=== PATIENT | female | born 1990 | race Caucasian/White ===

== ENCOUNTER 2019-04-18 09:50 | Outpatient (CLI) | payer BC ==
[2019-04-18 10:16] VITALS: BP 124/81; PULSE 118; RESP 18; TEMP 97.4
[2019-04-18 10:44] LABS: Basophils % (A) 0 %; Eosinophils # (A) 0.1 k/uL (0-0.7); Eosinophils % (A) 1 %; HGB 13.5 gm/dL (11.4-16.0); Lymphocytes # (A) 1.3 k/uL (1.0-4.8); Lymphocytes % (A) 12 %; MCH 30.9 pg (25.0-35.0); MCHC 34.5 g/dL (31.0-37.0); MCV 89.5 fL (80.0-100.0); Mean Platelet Volume 7.3; Monocytes # (A) 0.5 k/uL (0-1.0); Monocytes % (A) 5 %; Neutrophils # (A) 8.2 k/uL (1.3-7.7); Neutrophils % (A) 80 %; Platelet Count 203 k/uL (150-450); RBC 4.36 m/uL (3.80-5.40); RDW 13.4 % (11.5-15.5); WBC 10.2 k/uL (3.8-10.6)
[2019-04-18 10:55] LABS: ALT 30 U/L (9-52); AST 29 U/L (14-36); African American GFR (CKD) >90 (>60 ml/min/1.73 sqM); Blood Urea Nitrogen 7 mg/dL (7-17); LDH 373 U/L (313-618); Uric Acid 3.7 mg/dL (3.7-7.4)
== END 2019-04-18 12:25 | disposition home or self-care (01) ==
LOC: FBPOP 09:50
PROVIDERS: ATTEND Obstetrics & Gynecology
DX: O13.3 Gestational [pregnancy-induced] hypertension without significant proteinuria, third trimester (principal); Z3A.37 37 weeks gestation of pregnancy
CPT/HCPCS: 59025; 82565; 82570; 83615; 84156; 84450; 84460; 84520; 84550; 85025

== ENCOUNTER 2019-04-26 05:40 | Inpatient (IN) | payer BC ==
[2019-04-26] MEDS ORDERED: TERBUTALINE 1 MG/ML VIAL SQ PRN (05:59)
[2019-04-26] MEDS ORDERED: LIDOCAINE 0.5% (PF) 5 MG/ML (50 ML SDV) SQ PRN (05:59)
[2019-04-26] MEDS ORDERED: CARBOPROST TROMETHAMINE 250 MCG/ML 1 ML AMP IM PRN (05:59)
[2019-04-26] MEDS ORDERED: OXYTOCIN 30 UNITS/500 ML NS 30 UNIT in SALINE 1 500ML.BAG IV SCH (05:59)
[2019-04-26] MEDS ORDERED: OXYTOCIN 10 UNIT/ML 1 ML VIAL IM PRN (05:59)
[2019-04-26] MEDS ORDERED: METHYLERGONOVINE 0.2 MG/ML 1 ML AMP IM PRN (05:59)
--- NOTE | 2019-04-26 06:06 | P.HPOB ---
History of Present Illness H&P Date: 04/26/19 Chief Complaint: Gestational hypertension. This patient is a pleasant 28-year-old 1 para 0 female estimated date of confinement 05/07/2019 estimated gestational age 38-3/7 weeks who presents to labor and delivery for induction of labor secondary to gestational hypertension. Patient's history is such that her second visit she had elevated blood pressures 138/98. Patient was watched closely at home and also with nonstress testing and growth ultrasounds. She did have preeclampsia labs approximately a week and a half ago which were normal however began developing blood pressures 130/90. This time I recommended per current recommendations to proceed with delivery with a favorable cervix at term. care has otherwise been uncomplicated. Review of Systems Genitourinary: Reports Menstruation: Reports amenorrhea Past Medical History Past Medical History: No Reported History History of Any Multi-Drug Resistant Organisms: None Reported Past Surgical History: No Surgical Hx Reported Past Anesthesia/Blood Transfusion Reactions: No Reported Reaction Past Psychological History: No Psychological Hx Reported Smoking Status: Never smoker Past Alcohol Use History: None Reported Past Drug Use History: None Reported Medications and Allergies Home Medications Medication Instructions Recorded Confirmed Type Pnv 11/Iron Fum/Folic Acid/Om3 1 each PO DAILY 04/18/19 04/26/19 History [Virt-Freeman Dha Softgel] Allergies Allergy/AdvReac Type Severity Reaction Status Date / Time loratadine [From Claritin] AdvReac Rash/Hives Verified 04/18/19 10:07 Exam Intake and Output 04/25/19 04/25/19 04/26/19 14:59 22:59 06:59 Other: Weight 90.265 kg - OBG Physical Exam Abdomen: bowel sounds normal, no diffuse tenderness, no bruit present, no guarding noted, no hepatomegaly, no splenomegaly, no mass Vulva: both: normal Vagina: normal moisture, no discharge Cervix: no lesion (Cervix in the office was 1-2 cm dilated and soft.), no discharge Uterus: enlarged (Fundal height was 39 cm) Results blood work shows she is O positive, rubella immune, RPR nonreactive, hepatitis B negative, Glucola was normal, group B strep was negative, most recent growth ultrasound showed normal size. Assessment and Plan Assessment: This patient is a pleasant 28-year-old 1 para 0 female 38-3/7 weeks gestation who is admitted to labor and delivery for induction of labor secondary to gestational hypertension. Plan is induction of labor and anticipate vaginal delivery. I am going to repeat her preeclampsia blood work at this time. (1) 38 weeks gestation of Current Visit: Yes Status: Acute Code(s): Z3A.38 - 38 WEEKS GESTATION OF SNOMED Code(s): 78570977 (2) Gestational hypertension Current Visit: Yes Status: Acute Code(s): O13.9 - GESTATIONAL HTN W/O SIGNIFICANT PROTEINURIA, UNSP TRIMESTER SNOMED Code(s): 215020582
[2019-04-26 06:35] LABS: Basophils # (A) 0.1 k/uL (0-0.2); Basophils % (A) 1 %; Eosinophils # (A) 0.1 k/uL (0-0.7); Eosinophils % (A) 1 %; HCT 40.7 % (34.0-46.0); HGB 14.1 gm/dL (11.4-16.0); Lymphocytes % (A) 19 %; MCH 30.9 pg (25.0-35.0); MCHC 34.6 g/dL (31.0-37.0); MCV 89.4 fL (80.0-100.0); Mean Platelet Volume 7.4; Monocytes # (A) 0.5 k/uL (0-1.0); Monocytes % (A) 5 %; Neutrophils # (A) 7.2 k/uL (1.3-7.7); Neutrophils % (A) 71 %; Platelet Count 196 k/uL (150-450); RBC 4.56 m/uL (3.80-5.40); RDW 13.6 % (11.5-15.5); WBC 10.1 k/uL (3.8-10.6)
[2019-04-26] MEDS: LACTATED RINGERS 1,000 ML IV SCH ×4 (06:41→17:53)
[2019-04-26 06:44] LABS: INR 0.8 (<1.2); Partial Thromboplastin Time 24.3 sec (22.0-30.0); Prothrombin Time 9.4 sec (9.0-12.0)
[2019-04-26 06:46] VITALS: BMI 34.1
[2019-04-26 06:47] LABS: Albumin 3.7 g/dL (3.5-5.0); Bilirubin, Delta 0.2 mg/dL (0.0-0.2); Bilirubin,Unconjugated 0.7 mg/dL (0.0-1.1); Total Bilirubin 0.9 mg/dL (0.2-1.3); Total Protein 6.8 g/dL (6.3-8.2); Uric Acid 3.3 mg/dL (3.7-7.4)
[2019-04-26] MEDS ORDERED: SODIUM CHLORIDE 0.9% 100 ML BAG ONE (12:19)
[2019-04-26] MEDS ORDERED: fentaNYL (PF) 50 MCG/ML 5 ML AMP ONE (12:19)
[2019-04-26] MEDS ORDERED: ROPIVACAINE 5MG/ML 20ML VIAL ONE (12:19)
[2019-04-26] MEDS ORDERED: AMPICILLIN 2,000 MG in SODIUM CHLORIDE 0.9% 100 ML IVPB STA (17:57)
[2019-04-26] MEDS ORDERED: diphenhydrAMINE 25 MG CAP PO PRN (19:44)
[2019-04-26] MEDS ORDERED: WITCH HAZEL 1 EACH MED..PAD TOPICAL PRN (19:44)
[2019-04-26] MEDS ORDERED: diphenhydrAMINE 50 MG/ML 1 ML VIAL IVP PRN (19:44)
[2019-04-26] MEDS ORDERED: LANOLIN CREAM 5 GM TUBE TOPICAL PRN (19:44)
[2019-04-26] MEDS ORDERED: SIMETHICONE 80 MG CHEWABLE PO PRN (19:44)
[2019-04-26] MEDS ORDERED: OXYTOCIN 20 UNITS/1000 ML NS 1,000 ML IV SCH (19:44)
[2019-04-26] MEDS ORDERED: BISACODYL 10 MG SUPP RECTAL PRN (19:44)
[2019-04-26] MEDS ORDERED: ACETAMINOPHEN TAB 325 MG TAB PO PRN (19:44)
[2019-04-26] MEDS ORDERED: HYDROCORTISONE 2.5% RECTAL CREAM 30 GM TUBE RECTAL PRN (19:44)
[2019-04-26] MEDS ORDERED: BENZOCAINE/MENTHOL SPRAY 1 GM/SPRAY AEROSOL TOPICAL PRN (19:44)
[2019-04-26] MEDS ORDERED: ZOLPIDEM 5 MG TAB PO PRN (19:44)
--- NOTE | 2019-04-26 20:04 | P.PROBDLV ---
Vaginal Delivery Note - . Vaginal Delivery Note: Normal vaginal delivery viable male infant Apgars 9 and 9 delivery time is 1932 hrs. Please see dictated H&P for intimate details of this patient's admission. Brief summary this is a pleasant 28-year-old 1 para 0 female 38-3/7 weeks who presents to labor and delivery for induction of labor secondary to gestational hypertension. On admission patient is 1-2 cm dilated has artificial rupture membranes for clear fluid. Labor is induced with Pitocin per protocol. She does receive an epidural for pain control. Patient quickly progresses after getting to 5 cm and pushes for approximately 20-30 minutes. Patient pushes the head to the perineum. The posterior perineum is supported and we have controlled delivery of the 's head over the intact perineum. Mouth and nares are bulb suctioned. There is a nuchal cord which is loose and then redu matthias. With gentle downward traction we then have delivery the anterior and posterior shoulder and rest this 's body. This is a vigorous viable male Apgars are 9 and 9 delivery time is 1932 hrs. After delivery of the the umbilical cord is is allowed to quit pulsating, it is then doubly clamped and cut. It appears to be trivascular. Inspection of perineum shows a second-degree laceration. There is also some avulsion of the vagina on the right-hand side. These areas are infiltrated with 1% lidocaine and reapproximation of the vaginal avulsion is done and the rest of the second- degree laceration. Excellent reapproximation is noted. Estimated blood loss is 200 mL. Cord blood was obtained O positive status. and mother are stable in delivery room. All counts correct 3. There are no complications.
[2019-04-26] MEDS ORDERED: AMPICILLIN 1,000 MG in SODIUM CHLORIDE 0.9% 50 ML IVPB SCH (22:00)
[2019-04-26] MEDS: SENNOSIDES-DOCUSATE SODIUM 1 EACH TAB PO SCH (22:25)
--- NOTE | 2019-04-27 06:40 | P.PNOBGVD ---
Subjective - Subjective Patient reports: Reports appetite normal, Reports voiding normally, Reports pain well controlled, Reports ambulating normally : doing well Objective - Latest Vital Signs Latest vital signs: Vital Signs Temp Pulse Resp BP Pulse Ox 04/27/19 04:50 98.4 F 85 16 112/70 04/27/19 02:00 98.2 F 87 16 109/62 98 04/26/19 22:20 97.2 F L 92 16 118/74 04/26/19 21:45 97.6 F 109 H 16 112/74 04/26/19 21:14 99.1 F 111 H 16 120/67 04/26/19 20:45 108 H 16 128/62 04/26/19 20:30 110 H 16 120/73 04/26/19 20:15 111 H 16 116/66 04/26/19 20:00 123 H 16 151/65 04/26/19 19:45 98.7 F 101 H 16 159/76 Intake and Output 04/26/19 04/26/19 04/27/19 14:59 22:59 06:59 Output Total 200 200 Balance -200 -200 Output: Urine 200 Estimated Blood Loss 200 Other: # Voids 1 0 - Exam Lungs: bilateral: normal Chest: Normal S1, Normal S2 Extremities: Present: normal Abdomen: Present: normal appearance, soft Uterus: Present: normal, firm - Labs Labs: Abnormal Lab Results - Last 24 Hours (Table) 04/26/19 Range/Units 06:15 Uric Acid 3.3 L (3.7-7.4) mg/dL Alkaline Phosphatase 127 H (38-126) U/L Assessment and Plan Assessment: Post day #1. Patient is resting without complaints. Vital signs are stable and she is afebrile. She did have some increased lochia immediately after delivery but this has since resolved. Plan today is to check a CBC, and continue routine care. (1) 38 weeks gestation of Current Visit: Yes Status: Acute Code(s): Z3A.38 - 38 WEEKS GESTATION OF SNOMED Code(s): 40716569 (2) Gestational hypertension Current Visit: Yes Status: Acute Code(s): O13.9 - GESTATIONAL HTN W/O SIGNIFICANT PROTEINURIA, UNSP TRIMESTER SNOMED Code(s): 077111524
[2019-04-27 07:11] LABS: Basophils # (A) 0.1 k/uL (0-0.2); Basophils % (A) 0 %; Eosinophils # (A) 0.1 k/uL (0-0.7); Eosinophils % (A) 1 %; HCT 35.4 % (34.0-46.0); HGB 12.1 gm/dL (11.4-16.0); Lymphocytes # (A) 1.7 k/uL (1.0-4.8); Lymphocytes % (A) 13 %; MCH 30.8 pg (25.0-35.0); MCHC 34.2 g/dL (31.0-37.0); MCV 90.2 fL (80.0-100.0); Mean Platelet Volume 7.8; Monocytes # (A) 0.8 k/uL (0-1.0); Monocytes % (A) 6 %; Neutrophils # (A) 10.1 k/uL (1.3-7.7); Neutrophils % (A) 78 %; Platelet Count 192 k/uL (150-450); RBC 3.92 m/uL (3.80-5.40); RDW 13.9 % (11.5-15.5)
[2019-04-27] MEDS: IBUPROFEN 600 MG TAB PO PRN ×3 (07:52→21:44)
[2019-04-27] MEDS: SENNOSIDES-DOCUSATE SODIUM 1 EACH TAB PO SCH ×2 (07:52→21:42)
[2019-04-27 23:56] VITALS: RESP 16
--- NOTE | 2019-04-28 06:35 | P.PNOBGVD ---
Subjective - Subjective Patient reports: Reports appetite normal, Reports voiding normally, Reports pain well controlled, Reports ambulating normally : doing well Objective - Latest Vital Signs Latest vital signs: Vital Signs Temp Pulse Resp BP Pulse Ox 04/28/19 00:00 98.0 F 87 16 110/70 97 04/27/19 20:00 98.6 F 83 16 120/67 04/27/19 16:00 98.6 F 99 18 100/56 97 04/27/19 08:00 98.2 F 76 18 108/82 Intake and Output 04/27/19 04/27/19 04/28/19 14:59 22:59 06:59 Intake Total 600 Balance 600 Intake: Oral 600 Other: # Voids 1 - Exam Lungs: bilateral: normal Chest: Normal S1, Normal S2 Extremities: Present: normal Abdomen: Present: normal appearance, soft Uterus: Present: normal, firm - Labs Labs: Abnormal Lab Results - Last 24 Hours (Table) 04/27/19 Range/Units 06:39 WBC 13.0 H (3.8-10.6) k/uL Neutrophils # 10.1 H (1.3-7.7) k/uL Assessment and Plan Assessment: day #2. Patient is resting without complaints. Vital signs are stable she is afebrile. Uterus is firm nontender she's having normal lochia. Hemoglobin yesterday was 12. I impression this is a normal post course. Plan is to continue routine care discharge home later today. (1) 38 weeks gestation of Current Visit: Yes Status: Acute Code(s): Z3A.38 - 38 WEEKS GESTATION OF SNOMED Code(s): 92138221 (2) Gestational hypertension Current Visit: Yes Status: Acute Code(s): O13.9 - GESTATIONAL HTN W/O SIGNIFICANT PROTEINURIA, UNSP TRIMESTER SNOMED Code(s): 892630365
--- NOTE | 2019-04-28 06:39 | P.DS ---
Providers Date of admission: 04/26/19 05:40 Expected date of discharge: 04/28/19 Attending physician: Warner Ram Primary care physician: Stated None - Discharge Diagnosis(es) (1) 38 weeks gestation of Current Visit: Yes Status: Acute (2) Gestational hypertension Current Visit: Yes Status: Acute Hospital Course: Please see dictated H&P for intimate details of this patient's admission. Brief summary is a pleasant 28-year-old 1 para 0 female 38-3/7 weeks who is ad mitted to labor and delivery for induction of labor secondary to gestational hypertension. Patient is admitted has uncomplicated induction of labor goes on to have a vaginal delivery viable male . Please see dictated delivery note. day #2 patient's felt be stable for discharge home follow up with me in 6 weeks. Procedures: Induction of labor and normal vaginal delivery Patient Condition at Discharge: Good Plan - Discharge Summary New Discharge Prescriptions: New Ibuprofen [Motrin] 600 mg PO Q6HR PRN #30 tab PRN Reason: Mild Pain Or Fever >= 100.5 No Action Pnv 11/Iron Fum/Folic Acid/Om3 [Virt-Freeman Dha Softgel] 1 each PO DAILY Discharge Medication List Pnv 11/Iron Fum/Folic Acid/Om3 [Virt-Freeman Dha Softgel] 1 each PO DAILY 04/18/19 [History] Ibuprofen [Motrin] 600 mg PO Q6HR PRN #30 tab 04/28/19 [Rx] Follow up Appointment(s)/Referral(s): Warner Ram MD [STAFF PHYSICIAN] - 06/08/19 2:45 pm Patient Instructions/Handouts: Vaginal Delivery (DC) Activity/Diet/Wound Care/Special Instructions: No intercourse or anything per vagina for 6 weeks. Please call if any fever, chills, excessive vaginal bleeding, and/or abdominal pain. Discharge Disposition: HOME SELF-CARE
[2019-04-28] MEDS: IBUPROFEN 600 MG TAB PO PRN (08:09)
[2019-04-28] MEDS: SENNOSIDES-DOCUSATE SODIUM 1 EACH TAB PO SCH (08:10)
[2019-04-28 08:13] VITALS: BP 123/79; PULSE 75; TEMP 97.9
== END 2019-04-28 11:05 | disposition home or self-care (01) | DRG 807 ==
LOC: 4FBP 05:40
PROVIDERS: ADMIT Obstetrics & Gynecology; ATTEND Obstetrics & Gynecology
PROC: 10E0XZZ Delivery of Products of Conception, External Approach (ICD-10-PCS; principal; 2019-04-26)
PROC: 10907ZC Drainage of Amniotic Fluid, Therapeutic from Products of Conception, Via Natural or Artificial Opening (ICD-10-PCS; principal; 2019-04-26)
PROC: 00HU33Z Insertion of Infusion Device into Spinal Canal, Percutaneous Approach (ICD-10-PCS; principal; 2019-04-26)
PROC: 0KQM0ZZ Repair Perineum Muscle, Open Approach (ICD-10-PCS; principal; 2019-04-26)
PROC: 3E0R3NZ Introduction of Analgesics, Hypnotics, Sedatives into Spinal Canal, Percutaneous Approach (ICD-10-PCS; principal; 2019-04-26)
PROC: 3E033VJ Introduction of Other Hormone into Peripheral Vein, Percutaneous Approach (ICD-10-PCS; principal; 2019-04-26)
DX: O13.4 Gestational [pregnancy-induced] hypertension without significant proteinuria, complicating childbirth (principal); Z37.0 Single live birth; O69.81X0 Labor and delivery complicated by cord around neck, without compression, not applicable or unspecified; O70.1 Second degree perineal laceration during delivery; Z3A.38 38 weeks gestation of pregnancy
CPT/HCPCS: 80076; 83615; 84550; 85025; 85610; 85730; 86850; 86900; 86901; 88307

== ENCOUNTER 2021-01-30 09:59 | Inpatient (IN) | payer BC ==
[2021-01-30] MEDS: LACTATED RINGERS 1,000 ML IV SCH ×2 (10:21→19:33)
[2021-01-30 10:44] LABS: Basophils % (A) 0 %; Eosinophils # (A) 0.2 k/uL (0-0.7); Eosinophils % (A) 2 %; HCT 39.7 % (34.0-46.0); HGB 13.8 gm/dL (11.4-16.0); Lymphocytes # (A) 1.2 k/uL (1.0-4.8); Lymphocytes % (A) 13 %; MCH 31.3 pg (25.0-35.0); MCHC 34.6 g/dL (31.0-37.0); MCV 90.3 fL (80.0-100.0); Mean Platelet Volume 8.7; Monocytes # (A) 0.5 k/uL (0-1.0); Monocytes % (A) 5 %; Neutrophils # (A) 7.4 k/uL (1.3-7.7); Neutrophils % (A) 79 %; Platelet Count 196 k/uL (150-450); RDW 13.5 % (11.5-15.5); WBC 9.4 k/uL (3.8-10.6)
[2021-01-30 10:54] LABS: INR 0.8 (<1.2); Partial Thromboplastin Time 22.2 sec (22.0-30.0); Prothrombin Time 9.4 sec (9.0-12.0)
[2021-01-30 11:08] LABS: Protein/Creatinine Ratio,Urine 0.087
[2021-01-30 11:11] LABS: Appearance,Urine Cloudy (Clear); Bilirubin,Urine Negative (Negative); Blood,Urine Negative (Negative); Color,Urine Yellow; Glucose,Urine (UA) Negative (Negative); Ketones,Urine Negative (Negative); Leukocyte Esterase,Urine Negative (Negative); Mucus,Urine Rare /hpf; Nitrite,Urine Negative (Negative); Protein,Urine Trace (Negative); Specific Gravity,Urine 1.018 (1.001-1.035); Squamous Epithelial Cell,Urine 22 /hpf (0-4); Urobilinogen,Urine <2.0 mg/dL (<2.0); WBC,Urine 3 /hpf (0-5)
[2021-01-30] MEDS ORDERED: LACTATED RINGERS 1,000 ML IV ONE (12:27)
[2021-01-30] MEDS ORDERED: CITRIC ACID-SODIUM CITRATE 15 ML CUP PO ONE (12:27)
--- NOTE | 2021-01-30 12:37 | P.HPOB ---
History of Present Illness H&P Date: 01/30/21 Chief Complaint: Gestational hypertension, breech presentation This patient is a pleasant 30-year-old 2 para 1 female estimated date of confinement 02/11/2021 estimated gestational age 38-2/7 weeks who presented to my office today for routine office visit follow-up of her blood pressure. Patient has a history of gestational hypertension at term with her first preg juanita and was induced at 38 weeks. Patient's been on baby aspirin this and blood pressures have been becoming elevated the last week or 2. Patient was the office today and had repetitive blood pressures the fit criteria for delivery. Patient is breech and we've discussed previously we'll plan to proceed with trial of version. Version today was unsuccessful and therefore plan to proceed with primary section for delivery. Review of Systems Genitourinary: Reports Menstruation: Reports amenorrhea Past Medical History Past Medical History: No Reported History Additional Past Medical History / Comment(s): 38 week vaginal delivery for ge stational hypertension first History of Any Multi-Drug Resistant Organisms: None Reported Past Surgical History: No Surgical Hx Reported Past Anesthesia/Blood Transfusion Reactions: No Reported Reaction Past Psychological History: No Psychological Hx Reported Smoking Status: Never smoker Past Alcohol Use History: None Reported Past Drug Use History: None Reported - Past Family History Mother Family Medical History: No Reported History Medications and Allergies Home Medications Medication Instructions Recorded Confirmed Type Pnv 11/Iron Fum/Folic Acid/Om3 1 each PO DAILY 04/18/19 01/30/21 History [Virt-Freeman Dha Softgel] RX: Aspirin 81 mg PO DAILY 01/30/21 01/30/21 History Allergies Allergy/AdvReac Type Severity Reaction Status Date / Time loratadine [From Claritin] AdvReac Rash/Hives Verified 01/30/21 10:11 Exam Vital Signs Temp Pulse Resp BP Pulse Ox 01/30/21 11:18 98.2 F 111 H 16 136/90 100 Intake and Output 01/29/21 01/30/21 01/30/21 22:59 06:59 14:59 Other: Weight 91.626 kg - OBG Physical Exam Abdomen: bowel sounds normal, no diffuse tenderness, no bruit present, no guarding noted, no hepatomegaly, no splenomegaly, no mass Vulva: both: normal Vagina: normal moisture, no discharge Cervix: no lesion (Cervix is closed and thick), no discharge Uterus: enlarged (Fundal height 38 cm) Results Result Diagrams: 01/30/21 10:15 Abnormal Lab Results - Last 24 Hours (Table) 01/30/21 Range/Units 10:15 Urine Appearance Cloudy H (Clear) Urine Protein Trace H (Negative) Ur Squamous Epith Cells 22 H (0-4) /hpf Urine Mucus Rare H (None) /hpf Assessment and Plan Assessment: This is a pleasant 30-year-old 2 para 1 female 38-2/7 weeks gestation with gestational hypertension without preeclampsia at this time and persistent breech presentation despite trial of external cephalic version. Plan is primary low transverse section for delivery. Patient and I and her have discussed the surgery and risks including risks of infection, bleeding, po ssible injury bowel, bladder, vessels, and/or other organs. All the patient's questions are answered and a written consent is obtained. (1) Breech presentation of fetus Current Visit: Yes Status: Acute Code(s): O32.1XX0 - MATERNAL CARE FOR BREECH PRESENTATION, UNSP SNOMED Code(s): 3456109 (2) 38 weeks gestation of Current Visit: No Status: Acute Code(s): Z3A.38 - 38 WEEKS GESTATION OF SNOMED Code(s): 64069621 (3) Gestational hypertension Current Visit: No Status: Acute Code(s): O13.9 - GESTATIONAL HTN W/O SIGNIFICANT PROTEINURIA, UNSP TRIMESTER SNOMED Code(s): 41931110
--- NOTE | 2021-01-30 12:38 | P.PN ---
Progress Note - Text Progress Note Date: 01/30/21 Patient is persistent breech and is agreeable to trial of external cephalic version. Patient has a bedside ultrasound confirms persistent breech. I attempted to elevate the fetus out of the pelvis and rotate counterclockwise however the head would not go beyond oblique presentation despite 3 attempts. Plan will be to proceed with delivery by section later today.
[2021-01-30 13:39] LABS: ALT 21 U/L (4-34); AST 31 U/L (14-36); African American GFR (CKD) >90 (>60 ml/min/1.73 sqM); Blood Urea Nitrogen 5 mg/dL (7-17); LDH 373 U/L (313-618); Non-African American GFR(CKD) >90 (>60 ml/min/1.73 sqM); Uric Acid 3.2 mg/dL (3.7-7.4)
[2021-01-30] MEDS ORDERED: DEXAMETHASONE SOD PHOSPHATE 4 MG/ML 1 ML VIAL ONE (16:42)
[2021-01-30] MEDS ORDERED: ONDANSETRON 4 MG/2 ML VIAL ONE (16:42)
[2021-01-30] MEDS ORDERED: MORPHINE SULFATE (PF) 0.3 MG/0.3 ML SYR ONE (16:42)
[2021-01-30] MEDS ORDERED: OXYTOCIN 30 UNITS/500 ML NS BAG IV ONE (16:42)
[2021-01-30] MEDS ORDERED: KETOROLAC 15 MG/ML 1 ML VIAL ONE (16:42)
[2021-01-30] MEDS ORDERED: METOCLOPRAMIDE 5 MG/ML 2 ML VIAL IVP PRN (17:42)
[2021-01-30] MEDS ORDERED: LANOLIN CREAM 5 GM TUBE TOPICAL PRN (17:42)
[2021-01-30] MEDS ORDERED: ZOLPIDEM 5 MG TAB PO PRN (17:42)
[2021-01-30] MEDS ORDERED: NALOXONE 0.4 MG/ML 1 ML VIAL IV PRN (17:42)
[2021-01-30] MEDS ORDERED: ONDANSETRON 4 MG/2 ML VIAL IVP PRN (17:42)
[2021-01-30] MEDS ORDERED: SIMETHICONE 80 MG CHEWABLE PO PRN (17:42)
[2021-01-30] MEDS ORDERED: diphenhydrAMINE 25 MG CAP PO PRN (17:42)
[2021-01-30] MEDS ORDERED: diphenhydrAMINE 50 MG/ML 1 ML VIAL IVP PRN (17:42)
[2021-01-30] MEDS ORDERED: LACTATED RINGERS 1,000 ML IV SCH (17:45)
[2021-01-30] MEDS ORDERED: OXYTOCIN 30 UNITS/500 ML NS 30 UNIT in SALINE 1 500ML.BAG IV SCH (17:45)
--- NOTE | 2021-01-30 18:01 | P.OP ---
Date of Procedure: 01/30/21 Preoperative Diagnosis: #1: 38-2/7 week intrauterine . 2: Gestational hypertension. #3: Persistent breech presentation, failed external cephalic version Postoperative Diagnosis: Same Procedure(s) Performed: Primary low transverse section Anesthesia: spinal Surgeon: Warner Ram Concierge #1: Brook Singleton Estimated Blood Loss (ml): 1,310 Pathology: none sent Condition: stable Disposition: floor Indications for Procedure: Please see dictated H&P for intimate details this patient's admission. Brief summary this is a pleasant 30-year-old 2 para 1 female 38-2/7 weeks gestation admitted to labor and delivery for evaluation of gestational hypertension. Patient is found to have persistent elevated blood pressures more than 4 hours apart therefore's recommendation to proceed with delivery. Patient is known breech presentation and she and I discussed trial of external cephalic version. This was attempted without success. Therefore patient now precedes to have a section for delivery. She does understand the surgery and risks and risks of infection, bleeding, possible injury bowel, bladder, vessels, and/or other organs. All the patient's questions are answered and a written consent obtained. Operative Findings: This is a vigorous viable male infant Apgars were 8 and 9 delivery time is 1704 hrs. Infant was sacrum anterior jayden breech presentation. Description of Procedure: This patient has a Grijalva catheter placed to straight drain. She subsequently taken to the operating room where she sat up and spinal anesthetic is administered without incident. With an adequate level of anesthesia, patient has abdominal prep and drape. Scalpels and taken Pfannenstiel skin incision is then made. A second scalpel is taken down the fascia the fascia scored with a knife. Fascial incision extended bilaterally using the Velásquez scissors. Fascia is dissected off the rectus muscles sharply. Rectus muscles are the peritoneum identified and entered sharply. Peritoneal incision extended superior and inferior without difficulty. Bladder blade is then placed. Bladder peritoneum was taken off the lower uterine segment sharply. Low transve rse uterine incision is then made and using a hemostat I enter the uterine cavity bluntly. Of note there is multiple large vascularities in this area. The uterine incision is then extended bluntly. The infant's found to be in the sacrum anterior breech presentation. Using the usual breech maneuvers we have delivery of a viable male Apgars 8 and 9 delivery time is 1704 hrs. Infant has spontaneous respiration and cry and grossly appears normal. After delivery of the infant the umbilical cord is doubly clamped and cut appears to be trivascular. Placenta is then manually extracted intact. Uterus is then externalized uterine incision demarcated with Veloz clamps. Incision is then closed using 0 Vicryl running locked fashion 2 layers. Additional [id number] stitches are done with 0 Vicryl. At this point excellent hemostasis is noted. Bladder peritoneum was then reapproximated using a 3-0 Vicryl. Final inspection of the uterine incision found to be intact and hemo static. Excess fluid is removed from the abdomen and pelvis. Uterus placed back into the abdomen. Vital peritoneum was then identified and closed using 0 Vicryl running fashion. Rectus muscles reapproximated in 0 Vicryl interrupted fashion. Fascial incision is then closed using 0 PDS. Fascial incision is intact and hemostatic. Subcutaneous tissues and closed using a 3-0 Vicryl. Skin is and closed using pari. Sterile dressing is applied. All counts are correct 3. There are no complications. Infant and mother are taken the birthing suite in satisfactory condition.
[2021-01-31] MEDS: KETOROLAC 15 MG/ML 1 ML VIAL IVP SCH ×4 (01:11→20:46)
--- NOTE | 2021-01-31 05:47 | P.PN ---
Progress Note - Text Progress Note Date: 01/31/21 Postoperative day 1 status post section under spinal anesthesia, and intrathecal morphine given for postoperative analgesia, patient doing well, there is no anesthesia related complications Patient had no headache, vital signs stable Assessment and plan = postop day 1 status post , doing well there is no anesthesia related complication
--- NOTE | 2021-01-31 05:57 | P.PNOBGPC ---
Subjective - Subjective Patient reports: Reports appetite normal, Reports voiding normally, Reports pain well controlled, Reports ambulating normally : doing well Objective - Vital Signs Latest vital signs: Vital Signs Temp Pulse Resp BP Pulse Ox 01/31/21 04:00 98.8 F 79 16 104/68 97 01/31/21 00:00 98.4 F 75 16 109/68 01/30/21 19:36 97.0 F L 82 16 103/71 97 01/30/21 19:06 98.2 F 78 14 111/62 98 01/30/21 18:50 97.2 F L 76 16 112/62 100 01/30/21 18:36 73 16 112/64 99 01/30/21 18:21 97.5 F L 87 16 125/72 99 01/30/21 18:06 97.2 F L 77 16 113/60 99 01/30/21 17:51 97.2 F L 71 16 119/60 99 01/30/21 17:42 99 01/30/21 17:36 97.3 F L 86 16 119/63 99 01/30/21 11:18 98.2 F 111 H 16 136/90 100 Intake and Output 01/30/21 01/30/21 01/31/21 14:59 22:59 06:59 Output Total 100 1400 Balance -100 -1400 Output: Urine 100 1400 Other: # Voids 1 Weight 91.626 kg - Exam Lungs: bilateral: normal Chest: Normal S1, Normal S2 Extremities: Present: normal Abdomen: Present: normal appearance, soft. Absent: distention, tenderness Incision: Present: normal, dry, intact Uterus: Present: normal, firm - Labs Labs: Abnormal Lab Results - Last 24 Hours (Table) 01/30/21 01/30/21 Range/Units 10:15 13:10 BUN 5 L (7-17) mg/dL Creatinine 0.49 L (0.52-1.04) mg/dL Uric Acid 3.2 L (3.7-7.4) mg/dL Urine Appearance Cloudy H (Clear) Urine Protein Trace H (Negative) Ur Squamous Epith Cells 22 H (0-4) /hpf Urine Mucus Rare H (None) /hpf Assessment and Plan Assessment: Postoperative day #1. Patient is resting without complaints. Vital signs are stable she is afebrile. Uterus is firm nontender and her incision is intact and dry. My impression this is a normal postoperative course. Plan is to check a CBC, encourage ambulation, allow the patient to shower, advanced to regular diet. (1) Breech presentation of fetus Current Visit: Yes Status: Acute Code(s): O32.1XX0 - MATERNAL CARE FOR BREECH PRESENTATION, UNSP SNOMED Code(s): 1705169 (2) 38 weeks gestation of Current Visit: No Status: Acute Code(s): Z3A.38 - 38 WEEKS GESTATION OF SNOMED Code(s): 20212288 (3) Gestational hypertension Current Visit: No Status: Acute Code(s): O13.9 - GESTATIONAL HTN W/O SIGNIFICANT PROTEINURIA, UNSP TRIMESTER SNOMED Code(s): 50271436
[2021-01-31 07:26] LABS: Basophils % (A) 0 %; Eosinophils # (A) 0.1 k/uL (0-0.7); Eosinophils % (A) 0 %; HCT 34.2 % (34.0-46.0); HGB 11.7 gm/dL (11.4-16.0); Lymphocytes % (A) 14 %; MCH 31.3 pg (25.0-35.0); MCHC 34.1 g/dL (31.0-37.0); MCV 91.7 fL (80.0-100.0); Mean Platelet Volume 9.5; Monocytes # (A) 0.8 k/uL (0-1.0); Monocytes % (A) 6 %; Neutrophils # (A) 11.8 k/uL (1.3-7.7); Neutrophils % (A) 79 %; Platelet Count 184 k/uL (150-450); RBC 3.73 m/uL (3.80-5.40); RDW 13.5 % (11.5-15.5)
[2021-01-31] MEDS: SENNOSIDES-DOCUSATE SODIUM 1 EACH TAB PO PRN ×2 (08:57→20:46)
[2021-01-31] MEDS: ACETAMINOPHEN TAB 500 MG TAB PO PRN ×2 (17:23→23:34)
[2021-02-01] MEDS: IBUPROFEN 600 MG TAB PO PRN ×2 (02:14→07:56)
--- NOTE | 2021-02-01 05:58 | P.PNOBGPC ---
Subjective - Subjective Patient reports: Reports appetite normal, Reports voiding normally, Reports pain well controlled, Reports ambulating normally : doing well Objective - Vital Signs Latest vital signs: Vital Signs Temp Pulse Resp BP Pulse Ox 02/01/21 00:00 97.4 F L 67 14 101/64 98 01/31/21 16:00 98.1 F 82 16 108/71 99 01/31/21 12:00 97.9 F 84 16 98/59 97 01/31/21 08:00 98.8 F 80 16 107/71 100 Intake and Output 01/31/21 01/31/21 02/01/21 14:59 22:59 06:59 Intake Total 300 Output Total 2225 300 Balance -1925 -300 Intake: Oral 300 Output: Urine 2225 300 Uretheral (Grijalva) 975 Other: Voiding Method Indwelling Catheter # Voids 1 3 - Exam Lungs: bilateral: normal Chest: Normal S1, Normal S2 Extremities: Present: normal Abdomen: Present: normal appearance, soft. Absent: distention, tenderness Incision: Present: normal, dry, intact Uterus: Present: normal, firm - Labs Labs: Abnormal Lab Results - Last 24 Hours (Table) 01/31/21 Range/Units 07:11 WBC 15.0 H (3.8-10.6) k/uL RBC 3.73 L (3.80-5.40) m/uL Neutrophils # 11.8 H (1.3-7.7) k/uL Assessment and Plan Assessment: Postoperative day #2. Patient is resting without new complaints wishes to go home. Vital signs are stable and she states afebrile. CBC yesterday was normal. Patient is ambulating, urinating, and tolerating regular diet. Plan today is to discharge home follow up with me in 1 week. (1) Breech presentation of fetus Current Visit: Yes Status: Acute Code(s): O32.1XX0 - MATERNAL CARE FOR BREECH PRESENTATION, UNSP SNOMED Code(s): 7748870 (2) 38 weeks gestation of Current Visit: No Status: Acute Code(s): Z3A.38 - 38 WEEKS GESTATION OF SNOMED Code(s): 60073715 (3) Gestational hypertension Current Visit: No Status: Acute Code(s): O13.9 - GESTATIONAL HTN W/O SIGNIFICANT PROTEINURIA, UNSP TRIMESTER SNOMED Code(s): 70729189
[2021-02-01] MEDS: ACETAMINOPHEN TAB 500 MG TAB PO PRN (06:01)
--- NOTE | 2021-02-01 06:05 | P.DS ---
Providers Date of admission: 01/30/21 09:59 Expected date of discharge: 02/01/21 Attending physician: Warner Ram Primary care physician: Stated None - Discharge Diagnosis(es) (1) Breech presentation of fetus Current Visit: Yes Status: Acute (2) 38 weeks gestation of Current Visit: No Status: Acute (3) Gestational hypertension Current Visit: No Status: Acute Hospital Course: Please see dictated H&P for intimate details of this patient's admission. Brief summary this pleasant 30-year-old 2 para 1 female 38-2/7 weeks gestation admitted to labor and delivery for delivery secondary to gestational hypertension. Patient is also and a persistent breech presentation was a trial of version without success. Patient subsequently underwent a primary low transverse section for viable male infant. Please see dictated operative note. Postoperatively the patient did well and on postoperative 2 subsequently stable for discharge home follow up with me in 1 week. Procedures: Primary low transverse section Patient Condition at Discharge: Good Plan - Discharge Summary New Discharge Prescriptions: New Ibuprofen [Motrin] 600 mg PO Q6H PRN #30 tab PRN Reason: Pain oxyCODONE HCL [OxyIR] 5 mg PO Q4HR PRN #18 tab PRN Reason: Pain No Action Pnv 11/Iron Fum/Folic Acid/Om3 [Virt-Freeman Dha Softgel] 1 each PO DAILY Aspirin 81 mg PO DAILY Discharge Medication List Pnv 11/Iron Fum/Folic Acid/Om3 [Virt-Freeman Dha Softgel] 1 each PO DAILY 04/18/19 [History] Aspirin 81 mg PO DAILY 01/30/21 [History] Ibuprofen [Motrin] 600 mg PO Q6H PRN #30 tab 02/01/21 [Rx] oxyCODONE HCL [OxyIR] 5 mg PO Q4HR PRN #18 tab 02/01/21 [Rx] Follow up Appointment(s)/Referral(s): Warner Ram MD [STAFF PHYSICIAN] - 03/12/21 3:00 pm (Please see me on February 08 at 1:30 PM as well for an incision check.) Patient Instructions/Handouts: (DC) Activity/Diet/Wound Care/Special Instructions: No intercourse or anything per vagina for 6 weeks. No heavy lifting or strenuous activity for 6 weeks. Please call if any fever, chills, excessive vaginal bleeding, and/or abdominal pain Discharge Disposition: HOME SELF-CARE
[2021-02-01] MEDS: SENNOSIDES-DOCUSATE SODIUM 1 EACH TAB PO PRN (07:56)
[2021-02-01 08:22] VITALS: BP 120/68; PULSE 91; RESP 16; TEMP 97
== END 2021-02-01 11:00 | disposition home or self-care (01) | DRG 788 ==
LOC: 4FBP 09:59
PROVIDERS: ADMIT Obstetrics & Gynecology; ATTEND Obstetrics & Gynecology
PROC: 10D00Z1 Extraction of Products of Conception, Low, Open Approach (ICD-10-PCS; principal; 2021-01-30 17:00)
DX: O13.4 Gestational [pregnancy-induced] hypertension without significant proteinuria, complicating childbirth (principal); Z37.0 Single live birth; Z3A.38 38 weeks gestation of pregnancy; Z79.82 Long term (current) use of aspirin; O32.1XX0 Maternal care for breech presentation, not applicable or unspecified
CPT/HCPCS: 81001; 82565; 82570; 83615; 84156; 84450; 84460; 84520; 84550; 85025; 85610; 85730; 86850; 86900; 86901

== ENCOUNTER → 2023-09-21 | Outpatient (CLI) | payer BC ==
--- NOTE | 2023-09-21 23:20 | US ---
EXAMINATION TYPE: US OB anatomy transabd DATE OF EXAM: 09/21/2023 COMPARISON: NONE CLINICAL INDICATION: Female, 33 years old with history of O36.62X0 MATERNAL CARE FOR EXCESS STARR WTH, SE; anatomy exam TECHNIQUE: Transabdominal (TA) EXAM MEASUREMENTS: GESTATIONAL AGE / DATING Physician Established: (19weeks/0 days) EDC: 02/15/2024 Dates by LMP: ( weeks/ days) EDC: Dates by First Scan: ( weeks/ days) EDC: Dates by Current Scan for: (19weeks/1 days) EDC: 02/14/2024 SURVEY IUP: Single PLACENTA: Posterior PREVIA: Low Lying 1.6 cm from internal os SONIA: 10.9 Normal CERVICAL LENGTH (transabdominal: norm > 3.0cm): 4.9 BIOMETRY PRESENTATION: Breech LIE: Transverse lie with head maternal R BPD: 4.24 cm 18 weeks / 6 days HC: 16.21 cm 19 weeks / 0 days AC: 13.71 cm 19 weeks / 1 days FL: 2.97 cm 19 weeks / 2 days ESTIMATED WEIGHT IN GRAMS: 275 grams ESTIMATED WEIGHT IN LBS/OZ: 0 lbs. 10 oz. WEIGHT PERCENTAGE BASED ON ESTABLISHED DATE: 53 % HC/AC: 1.18 Normal FL/AC: 22% Normal HEART RATE: 134 bpm RHYTHM: Normal ANATOMY SEEN (within normal limits): * Lateral Vent (< 1 cm) 0.71 cm * Cisterna Magna (< 1.1 cm) 0.34 cm * Nuchal Fold (< 0.6 cm) 3.14 cm * Cerebellum (varies with age) 2.03 cm Choroid Plexus (bilateral) Midline Falx Cavus Septi Pellucidi Four Chamber Heart Outflow tracts: LVOT/RVOT Stomach Situs Nose / Lips Diaphragm Kidneys (bilateral) Bladder Cord Insert Three Vessel Cord Longitudinal Spine Transverse Spine Arms (bilateral) Legs (bilateral) ANATOMY SEEN (does not appear within normal limits): ANATOMY NOT SEEN: All anatomy seen on this exam and appears within normal limits IMPRESSION: 1. Single intrauterine gestation estimated at 19 weeks 1 day gestation. Cardiac activity measures 134 bpm. 2. anatomy appears within normal limits
== END | disposition home or self-care (01) ==
LOC: RADUSWWP 13:22
PROVIDERS: ATTEND Obstetrics & Gynecology
DX: O36.62X0 Maternal care for excessive fetal growth, second trimester, not applicable or unspecified (principal); O32.1XX0 Maternal care for breech presentation, not applicable or unspecified; Z3A.19 19 weeks gestation of pregnancy
CPT/HCPCS: 76811

== ENCOUNTER 2024-02-14 03:39 | Inpatient (IN) | payer BC | END 2024-02-15 14:00 | disposition home or self-care (01) | DRG 807 | LOC: 4FBP 03:39 | PROVIDERS: ADMIT Obstetrics & Gynecology; ATTEND Obstetrics & Gynecology | PROC: 10E0XZZ Delivery of Products of Conception, External Approach (ICD-10-PCS; principal; 2024-02-14) | PROC: 0KQM0ZZ Repair Perineum Muscle, Open Approach (ICD-10-PCS; 2024-02-14) | DX: O70.1 Second degree perineal laceration during delivery (principal); Z37.9 Outcome of delivery, unspecified; O34.211 Maternal care for low transverse scar from previous cesarean delivery; O69.81X0 Labor and delivery complicated by cord around neck, without compression, not applicable or unspecified; Z3A.39 39 weeks gestation of pregnancy; Z88.8 Allergy status to other drugs, medicaments and biological substances; Z79.82 Long term (current) use of aspirin ==